=== PATIENT | female | born 2005 | race Two or more races ===

== ENCOUNTER 2025-06-26 03:28 | Emergency (ER) | payer MEDICAID, SELFPAY ==
[2025-06-26 03:30] VITALS: BMI 22.3
[2025-06-26 03:38] VITALS: BP 124/79; PULSE 101; RESP 19; TEMP 36.7; O2SAT 97
--- NOTE | 2025-06-26 03:48 | XR_ITS ---
Examination: Complete OB ultrasound, less than 14 weeks, transabdominal Date and time of exam: September 25, 2025, 0359 hrs. Indications: Lower abdominal pain and cramping beginning today. Technique: Obstetrical ultrasound images less than 14 weeks performed via transabdominal imaging Findings: Uterus 8.9 cm no uterine mass or intrauterine gestation. Endometrial stripe 19 mm. Right ovary 2.9 cm arterial flow. Left ovary 4.3 cm arterial flow to 0.2 x 1.8 x 1.8 cm cyst Impression: Simple left ovarian cyst, 2.2 x 1.8 x 1.8 cm
--- NOTE | 2025-06-26 03:49 | PD.EDRME ---
Rapid Medical Screening Exam RME Arrival date/time: 06/26/25 03:28 This is a case of 20-year-old female who came in the emergency room due to abdominal cramping with no vaginal bleeding patient just found out that she is 1 para 0 denies any nausea vomiting persistence of the symptoms this patient decided to start consulted in the emergency room Chief Complaint: Abdominal Pain Time Seen by Provider: 06/26/25 03:30 Vital signs: Vital Signs Temperature 98.1 F 06/26/25 03:38 Pulse Rate 101 H 06/26/25 03:38 Respiratory Rate 19 06/26/25 03:38 Blood Pressure 124/79 06/26/25 03:38 Pulse Oximetry (%) 97 06/26/25 03:38 Oxygen Delivery Method Room Air 06/26/25 03:38
[2025-06-26 04:06] LABS: Basophils # (Auto) 0.1 Thou/mm3 (0.0-0.2); Basophils % (Auto) 1 % (0-2.5); Eosinophils # (Auto) 0.3 Thou/mm3 (0.0-0.5); Eosinophils % (Auto) 3 % (0-10); Hematocrit 37.1 % (36.0-46.0); Hemoglobin 12.8 g/dL (12.0-16.0); Immature Granulocytes Auto 0.02 Thou/mm3 (0.00-0.00); Lymphocytes # (Auto) 3.0 Thou/mm3 (1.0-4.8); Lymphocytes % (Auto) 33 % (10-50); Mean Corpuscular HGB Conc 34.5 g/dl (31.0-37.0); Mean Corpuscular Hemoglobin 30.3 pg (25.0-35.0); Mean Corpuscular Volume 88 fL (80-100); Monocytes # (Auto) 0.5 Thou/mm3 (0.0-0.8); Monocytes % (Auto) 6 % (0-12); Neutrophils # (Auto) 5.3 Thou/mm3 (1.8-7.7); Neutrophils % (Auto) 58 % (37-80); Nucleated Red Blood Cell # 0.00 Thou/mm3 (0.00-0.00); Nucleated Red Blood Cell % 0 /100 WBC (0); Platelet Count 303 Thou/mm3 (140-440); RDW Standard Deviation 38.3 fL (36.4-46.3); Red Blood Count 4.23 Miln/mm3 (4.00-5.20); White Blood Count 9.1 Thou/mm3 (3.6-11.0)
[2025-06-26 04:37] LABS: Alanine Aminotransferase < 7 U/L (10-49); Albumin, Serum 4.4 gm/dL (3.5-5.0); Albumin/Globulin Ratio 1.9 (1.2-2.2); Alkaline Phosphatase 57 U/L (46-116); Amylase 78 U/L (30-118); Anion Gap 8 (7-16); Aspartate Amino Transferase 15 U/L (0-34); BUN/Creatinine Ratio 8 Ratio (12-20); Beta HCG,Quantitative 683 mIU/mL (<5.0); Bilirubin,Total 1.8 mg/dL (0.3-1.2); Blood Urea Nitrogen 5 mg/dL (9-23); Calcium 9.3 mg/dL (8.3-10.6); Calcium (Corrected) 9.3 mg/dL (8.5-10.1); Carbon Dioxide 26.5 mMol/L (20.0-31.0); Chloride 105 mMol/L (98-107); Creatinine (Component) 0.6 mg/dL (0.6-1.3); Estimated Creatinine Clearance 111.0 mL/min (>60); Globulin 2.3 gm/dL (2.3-3.5); Glucose 94 mg/dL (74-106); Osmolality,Calculated 274 (275-295); Potassium 3.6 mMol/L (3.4-5.1); Sodium 139 mMol/L (136-145); Total Protein 6.7 gm/dL (5.7-8.2); eGFR > 60 See Note
[2025-06-26 05:14] LABS: Collection Type, Urine Voided
[2025-06-26 05:22] LABS: Bilirubin,Urine Negative (Negative); Blood,Urine Negative (Negative); Clarity,Urine Clear (Clear/Hazy); Color,Urine Lt-Yellow (Lt Yel-Yel); Glucose, Urine Negative (Negative); Ketones,Urine 1+ (Negative); Leukocyte Esterase,Urine Negative (Negative); Nitrite,Urine Negative (Negative); PH,Urine 5.5 (5.0-7.0); Protein,Urine Negative (Neg - Trace); RBC,Urine 2 /hpf (0-3); Specific Gravity,Urine 1.020 (1.001-1.035); Squamous Epithelial Cell,Urine 3 /hpf (0-5); Urobilinogen,Urine Negative mg/dL (0.0-1.0); WBC,Urine 1 /hpf (0-5)
--- NOTE | 2025-06-26 05:40 | PRELIM_ITS ---
Pelvic ultrasound (transabdominal ) with Doppler and wave Doppler spectral analysis. June 26, 2025 at 0359 hours Clinical history: Vaginal bleeding. Technique: Real-time, grayscale, transabdominal and transvaginal pelvic ultrasound was performed using Duplex scanning including arterial inflow, venous outflow, color and spectral Doppler. Comparison: No prior study is available for comparison. Findings: No evidence of intrauterine . The uterus is normal in size measuring 8.9 x 3.4 x 7.5 cm. The endometrium is unremarkable and measures 1.9 cm. The right ovary measures 2.9 x 1.3 x 2.2 cm and is unremarkable. The left ovary measures 4.3 x 2.5 x 3.6 cm, complex cystic lesion measuring 2.2 x 1.8 x 1.8 cm. Both ovaries demonstrate color flow and spectral waveforms on Doppler evaluation. There is no adnexal mass. There is no free fluid on the submitted images. Impression: No evidence of intrauterine . Please, correlate clinically. Complex left ovarian cystic lesion. Please, correlate clinically. Consider follow-up in 3 months. No evidence of ovarian torsion. Report Electronically Signed By: Yousuf Veronica 06/26/2025 5:40:23 AM [EST]
--- NOTE | 2025-06-26 06:56 | EDNOTE_ITS ---
<Statement entered by Michelle Baker MD - 06/26/25 08:12> I, Michelle Baker MD, have reviewed the history, exam, and assessment of the patient. I have evaluated the patient independently and agree with the plan of care documented by [ ]. All diagnostic studies were reviewed and discussed. I confirm the diagnosis as documented by the Resident. I was present during the Medical Decision Making for this patient. The patient's plan of care was created between myself and the Resident and consistent with our discussion of the patient's case. ED Abdominal Pain RME/HPI General Chief Complaint: Abdominal Pain Stated complaint: LOWER ABD CRAMPING, POSITIVE PREGNACY TEST Time seen by provider: 06/26/25 03:30 Arrival date/time: 06/26/25 03:28 RME / HPI RME / HPI narrative: 06/26/25 03:28 This is a case of 20-year-old female who came in the emergency room due to abdominal cramping with no vaginal bleeding patient just found out that she is 1 para 0 denies any nausea vomiting persistence of the symptoms this patient decided to start consulted in the emergency room Ms. Alonso is a 20-year-old female with no significant past medical history who presented to [facility] emergency department on 06/26/2025 with a chief complaint of left lower quadrant abdominal cramping. Patient defines her pain as menstrual pain only worse, patient reported that she checked a urine test and it was positive, unable to provide an exact date on her LMP, reports that it was last week of April and early May. Workup done in triage patient seen in room, hCG level 683 and ultrasound negative for gestational sac however shows simple left ovarian cyst 2.2 x1.8 x1.8 cm. Patient complains of some nausea was given p.o. Reglan. Informed patient regarding her results, patient already on vitamin, she also reports that she was prescribed antibiotics for UTI last month which she did not complete course. Urine analysis negative for bacteria. Informed patient to repeat hCG levels in 48 hours with PCP Related Data Home Medications ?Medication ?Instructions ?Recorded ?Confirmed vits no.126-ferrous fum tab 06/26/25 28 mg iron-folic acid 800 mcg tablet (Classic ) Allergies Allergy/AdvReac Type Severity Reaction Status Date / Time Penicillins Allergy Severe Swelling Verified 06/26/25 03:30 of Lip/Tongue/Throat Review of Systems Review of Systems Systems Reviewed: All systems reviewed, normal except as documented Past Medical History Surgical History OTHER SURGICAL HX: Denies past surgical history Social History SMOKING STATUS: Never smoker SUBSTANCE USE: does not use ALCOHOL: Never Past Medical History Comments PMH COMMENT: Denies past medical history ED Exam Narrative Physical exam: Physical Exam General: Awake and in no acute distress. Conversational and non-toxic appearing. HEENT: Normocephalic, atraumatic, mucous membranes moist. Heart: Regular rate and rhythm, no murmurs. Lungs: Clear to auscultation with no wheezing or crackles. Abdomen: Soft, nondistended, nontender, positive bowel sounds. ?No guarding or rebound tenderness. Neurologic: Alert and oriented x3, no gross neurological deficit, and patient able to move all 4 extremities. Extremities: No edema. Skin: No rash or ecchymoses. Course Course Course Narrative: Workup done in triage patient seen in room. CBC: WBC 9.1, RBC 4.23, hemoglobin 12.8, MCV 88, MCH 30.3, MCHC 34.5, platelet count 303 CMP: Sodium 139, potassium 3.6, chloride 105, bicarb 26.5, anion gap 8, BUN 5, creatinine 0.6, GFR greater than 60, glucose 94, osmolality 370, corrected calcium 9.3, total bilirubin 1.8, AST 15, ALT less than 7, total protein 6.7, albumin 4.4, amylase 78 beta-hCG 683 Urine: Color light yellow, pH 5.5, specific gravity 1.02, protein negative, glucose negative, blood negative, nitrate negative, bilirubin negative, urobilinogen negative, leukocyte esterase negative, WBC 1, RBC 2, epithelial cells 3, ketones 1+ bacteria none ultrasound less than 14 weeks transabdominal shows no uterine mass or intrauterine gestation endometrial stripe 19 mm left ovarian cyst 2.2 x 1.8 x 1.8 cm Patient complains of some nausea was given p.o. Reglan. Quality Measures none Orders Category Date Time Status US OB <= 14 weeks fetus Stat Exams 06/26/25 03:48 Completed ABO/RH Type Stat Lab 06/26/25 03:59 Completed Amylase Stat Lab 06/26/25 03:59 Completed Beta HCG,Quantitative Stat Lab 06/26/25 03:59 Completed CBC Stat Lab 06/26/25 03:59 Completed CMP [Comprehensive Metabolic Panel] Stat Lab 06/26/25 03:59 Completed Urinalysis Stat Lab 06/26/25 04:22 Completed Metoclopramide [Reglan] Med 06/26/25 06:49 Discontinued 10 mg PO X1 ONE Vital Signs Vital signs: Vital Signs Temperature 98.1 F 06/26/25 03:38 Pulse Rate 101 H 06/26/25 03:38 Respiratory Rate 19 06/26/25 03:38 Blood Pressure 124/79 06/26/25 03:38 Pulse Oximetry (%) 97 06/26/25 03:38 Oxygen Delivery Method Room Air 06/26/25 03:38 Abdominal Pain MDM MDM Narrative MDM Narrative:: # Ovarian cyst # Abdominal cramping chief complaint of left lower quadrant abdominal cramping. Patient defines her pain as menstrual pain only worse, patient reported that she checked a urine test (06/23/25) and it was positive unable to provide an exact date on her LMP, reports that it was last week of April and early May. hCG level 683 and ultrasound negative for gestational sac however shows simple left ovarian cyst 2.2 x1.8 x1.8 cm. Complains of some nausea was given p.o. Reglan. Otherwise labs benign Patient to follow up with PCP in 48 hours and repeat hCG level Continue pre- vitamins Case discussed with Attending Physician Dr. Samuel Pineda MD Internal Medicine PGY-2 Disclaimer: This note was dictated by speech recognition. Minor errors in grade setter may be present due to voice recognition software. Patient data External records reviewed:: [facility] previous records Clinical information provided by:: patient and parent Social determinants that could affect healthcare access:: none Patient has the following chronic illnesses:: None How is presenting disease/condition affected by chronic disease/condition?: no chronic disease Evaluation data The following diagnostics were reviewed and interpreted by me:: lab results and radiology exam(s) Lab and/or radiology exams considered but not ordered:: None Interpretation Summary: CBC: WBC 9.1, RBC 4.23, hemoglobin 12.8, MCV 88, MCH 30.3, MCHC 34.5, platelet count 303 CMP: Sodium 139, potassium 3.6, chloride 105, bicarb 26.5, anion gap 8, BUN 5, creatinine 0.6, GFR greater than 60, glucose 94, osmolality 370, corrected calcium 9.3, total bilirubin 1.8, AST 15, ALT less than 7, total protein 6.7, albumin 4.4, amylase 78 beta-hCG 683 Urine: Color light yellow, pH 5.5, specific gravity 1.02, protein negative, glucose negative, blood negative, nitrate negative, bilirubin negative, urobilin ogen negative, leukocyte esterase negative, WBC 1, RBC 2, epithelial cells 3, ketones 1+ bacteria none ultrasound less than 14 weeks transabdominal shows no uterine mass or intrauterine gestation endometrial stripe 19 mm left ovarian cyst 2.2 x 1.8 x 1.8 cm Patient complains of some nausea was given p.o. Reglan. Medications / Prescriptions Medications or Prescriptions considered but not ordered:: None Medication administrations:: Medication Administration History Discontinued Medications Metoclopramide HCl (Metoclopramide 5 Mg Tablet) 10 mg PO X1 ONE Stop: 06/26/25 06:50 Last Admin: 06/26/25 07:13 Dose: 10 mg Documented By: JT As Above Consultations Consultation(s) initiated? (list below): No Diagnosis Differential diagnosis abdominal pain: abdominal pain and other Most likely diagnosis given after review of the tests above:: Ovarian Cyst Admission Indicated Admission indicated?: not indicated Admission Request Was there a request for admission?: No Disposition Plan Disposition Plan: Discharge Discharge Attestation Discharge Attestation: The patient and all family members were given an opportunity to ask questions and understood the discharge instructions. Discharge instructions specifically effects, indications for sooner follow up or return to the emergency department, and the expected course of current diagnosis. Patient condition: Stable Discharge Plan Plan Patient Disposition: HOME (Self Care) Patient condition on transfer: Stable Health Concerns: - We recommend repeating hCG levels in 48 hours with your primary care physician to assess status - Please take [id number] Tylenol as needed for pain management, continue your daily vitamins, maintain adequate hydration. - Follow-up outpatient with your primary care physician for a repeat ultrasound for the ovarian cyst in 3 months - [facility] [address], address is provided below call the office to make an appointment - Follow-up with your primary care physician in 48 hours as above - Return to the emergency department if your symptoms worsen or as needed Prescriptions/Referrals Prescriptions/Med Rec: Continued Classic 28 mg iron- 800 mcg tablet Discontinued psyllium husk 3 gram/5.4 gram powder 1 tbsp PO QDAY Qty: 426 0RF Rx Instructions: mix into at least 8 oz of water or juice before administering nitrofurantoin monohyd/m-cryst [Macrobid] 100 mg capsule 100 mg PO BID Qty: 14 0RF Rx Instructions: must administer with a meal/food doxycycline hyclate 100 mg capsule 100 mg PO BID Qty: 14 0RF ibuprofen 400 mg tablet 400 mg PO Q6H PRN (Reason: pain) Qty: 30 0RF fluconazole 150 mg tablet 150 mg PO Q3D Qty: 2 0RF Rx Instructions: may repeat second dose 72 hrs after first dose if symptoms persist Referrals: Chano Chavez MD [Physician, [employer]] - In 1 week No Primary/Family,Physician [Primary Care Provider] - In 1 week Problem List Clinical Impression: Ovarian cyst Patient/Caregiver Discharge Instructions Education Materials: ED Ovarian Cyst Print Language: Cambodian Stand Alone Forms: Elen Award Info., Patient Portal Info Letter
[2025-06-26] MEDS: METOCLOPRAMIDE 5 MG TABLET 10 MG PO (07:13)
== END 2025-06-26 07:20 | disposition home or self-care (01) ==
PROVIDERS: Nurse Practitioner Family; Emergency Provider Emergency Medicine
DX: N83.292 Other ovarian cyst, left side (principal)
CPT/HCPCS: 36415; 76801; 80053; 81001; 82150; 84702; 85025; 86900; 86901; 99283; A9270